=== PATIENT | male | born 1965 | race Caucasian/White ===

== ENCOUNTER 2017-05-27 14:18 | Emergency (ER) | payer OTHER, MEDICARE ==
[~2017-05-27] VITALS: Ht 180.3 cm; Wt 81.6 kg
[~2017-05-27 14:18] MED LIST: ASPIRIN81 M4 PO; ATIVAN1 M1 PO; AZITHROMYCIN250 M1 PO; DIVALPROEX SOD250 M3 PO; ESCITALOPRAM OX10 MG PO; FLEXERIL10 MG PO; GUAIFEN-CODEIN118 M1 PO; INCRUSE ELLI62.5 MCG PO; INDERAL LA60 M1 PO; MEDROL4 M2 PO; MOTRIN 600 MG600 MG PO; OLANZAPINE10 M1 PO; OMEPRAZOLE20 M2 PO; TRAZODONE HCL100 M1 PO; VENTOLIN HFA18 GM INH; VICODIN 300 MG-1 TAB PO
[2017-05-27 14:51] LABS: ABSOLUTE BASOPHIL COUNT 0.1 /CUMM (0.0-0.2); ABSOLUTE EOSINOPHIL COUNT 0.2 /CUMM (0.0-0.7); ABSOLUTE GRANULOCYTE CT 7.1 /CUMM (1.4-6.5); ABSOLUTE LYMPH COUNT 2.8 /CUMM (1.2-3.4); ABSOLUTE MONOCYTE COUNT 1.3 /CUMM (0.10-0.60); BASOPHIL % 0.9 % (0.0-2.0); EOSINOPHIL % 1.8 % (0-5); HEMATOCRIT 41.7 % (42-52); MEAN CORPUSCULAR HGB 29.9 PG (27.0-31.0); MEAN CORPUSCULAR HGB CONC 33.1 G/DL (33.0-37.0); MEAN CORPUSCULAR VOLUME 90.5 FL (80.0-94.0); PLATELET COUNT 451 /CUMM (130-400); RBC DISTRIBUTION WIDTH 13.8 % (11.5-14.5); RED BLOOD CELL CT 4.61 /CUMM (4.70-6.10); WHITE BLOOD CELL COUNT 11.4 /CUMM (4.8-10.8)
--- NOTE | 2017-05-27 16:29 | ED CARDIAC/CP/PALPITATIONS ---
History of Present Illness General Chief Complaint: Chest Pain Stated Complaint: LEFT SIDED CHEST/NECK PAIN Source: patient Exam Limitations: no limitations Vital Signs & Intake/Output Vital Signs & Intake/Output Vital Signs Date Time Temp Pulse Resp B/P B/P Pulse O2 O2 Flow FiO2 Mean Ox Delivery Rate 05/27 2026 98.0 70 20 146/82 98 Room Air 05/27 1912 97.6 72 20 151/78 98 Room Air 05/27 1838 98.2 69 14 141/73 97 Room Air 05/27 1625 99 05/27 1427 97.6 86 20 134/77 96 Room Air Allergies Coded Allergies: Penicillins (UNKNOWN 10/09/16) celery (UNKNOWN 10/09/16) morphine (VOMITING 10/09/16) Reconcile Medications Albuterol Sulfate (Ventolin Hfa) 90 MCG HFA.AER.AD 2 PUF INH Q4-6 PRN PRN SHORTNESS OF BREATH (Reported) Aspirin (Aspirin*) 81 MG TAB.CHEW 1 TAB PO DAILY HEART HEALTH (Reported) Azithromycin 250 MG TABLET 1 DP PO AD BRONCHITIS 2 the first day followed by 1 for days 2-5 Codeine Phosphate/Guaifenesi (Guaifen-Codeine 100-10 MG/5 Ml) 10 MG-100 MG/5 ML LIQUID 10 ML PO Q6HR PRN COUGH Divalproex Sodium (Divalproex Sodium ER) 250 MG TAB.ER.24H 1 TAB PO BID UNKNOWN (Reported) Escitalopram Oxalate 10 MG TABLET 0.5 TAB PO DAILY MENTAL HEALTH (Reported) LORazepam (Ativan) 1 MG TABLET 1 TAB PO DAILY ANXIETY (Reported) Methylprednisolone. (Medrol) 4 MG TAB.DS.PK 1 DP PO AD COUGH 6 on day 1 then reduce by one tablet daily until gone Olanzapine 10 MG TABLET 2 TAB PO QPM MENTAL HEALTH (Reported) Omeprazole 20 MG CAPSULE.DR 1 CAP PO DAILY GI (Reported) Oxycodone HCl/Acetaminophen (Percocet 5-325 MG Tablet) 5 MG-325 MG TABLET 1-2 TAB PO BID PAIN Propranolol LA (Inderal LA) 60 MG CAP.SA.24H 1 CAP PO DAILY UNKNOWN (Reported ) Trazodone HCl 100 MG TABLET 1 TAB PO QPM SLEEP (Reported) Umeclidinium [place] (Incruse Ellipta) 62.5 MCG/ACTUATION BLST.W.DEV 1 PUFF PO DAILY COPD (Reported) Triage Note: PT TO ED C/O MID STERNAL CHEST PAIN, LEFT SIDED NECK PAIN SINCE 1800 ON FRIDAY. H/O MT X 2 IN 2011. PAIN IS WORSE WITH INHALATION. DENIES N/V/D. TO EKG [facility]. Triage Nurses Notes Reviewed? yes Onset: Abrupt Duration: day(s): (3), constant Timing: recent history Quality/Severity: sharp Modifying Factors: Worsens With: breathing. HPI: 51-year-old male comes into emergency room with complaints of left-sided chest pain this been going on for the past 3 days continuous. Worse with deep breath. Radiates down his left arm and into his left neck. He denies any fever chills cough. Denies any shortness of breath. Denies any vomiting. Patient reports he had an MT back in 2011. He comes in for further evaluation. Past History Travel History Traveled to [place] past 21 day No Medical History Any Pertinent Medical History? see below for history Neurological: NONE EENT: NONE Cardiovascular: myocardial infarction, X 2 Respiratory: COPD, lung cancer Gastrointestinal: NONE Hepatic: NONE Renal: NONE Musculoskeletal: NONE Psychiatric: NONE Endocrine: diabetes Cancer(s): lung cancer Surgical History Surgical History: RIGHT LUNG TUMOR REMOVED Psychosocial History Who do you live with Family What is your primary language Syriac Tobacco Use: Quit >30 days ago ETOH Use: denies use Illicit Drug Use: denies illicit drug use Family History Hx Contributory? No Review of Systems Review of Systems Constitutional: Reports: no symptoms. EENTM: Reports: no symptoms. Respiratory: Reports: see HPI. Cardiovascular: Reports: see HPI. GI: Reports: no symptoms. Genitourinary: Reports: no symptoms. Musculoskeletal: Reports: see HPI. Skin: Reports: no symptoms. Neurological/Psychological: Reports: no symptoms. Hematologic/Endocrine: Reports: no symptoms. Immunologic/Allergic: Reports: no symptoms. All Other Systems: Reviewed and Negative Physical Exam Physical Exam General Appearance: well developed/nourished, alert, awake Head: atraumatic Eyes: Bilateral: normal appearance. Ears, Nose, Throat: normal ENT inspection, hearing grossly normal Neck: normal inspection Respiratory: no respiratory distress, chest wall tenderness left side of chest Cardiovascular: regular rate/rhythm Gastrointestinal: soft Back: normal inspection Extremities: normal inspection, normal range of motion, no edema Neurologic/Psych: awake, alert, oriented x 3, normal gait Skin: intact, normal color Core Measures ACS in differential dx? No CVA/TIA Diagnosis No Sepsis Present: No Sepsis Focused Exam Completed? No Progress Differential Diagnosis: AMI, aortic dissection, atrial fibrillation, cholecystitis, costochondritis, hyperkalemia, musculoskeletal pain, myocarditis, pericarditis, pneumonia, pneumothorax, pulmonary embolism, PUD/GERD, respiratory failure, unstable angina Plan of Care: Orders Procedure Date/time Status TROPONIN LEVEL 05/27 1740 Complete EKG 05/27 1740 Active Add-on Test (ER Only) 05/27 1628 Active Telemetry/Packing House Laborer 05/27 1628 Active D-DIMER 05/27 1440 Complete TROPONIN LEVEL 05/27 1432 Complete MAGNESIUM 05/27 1432 Complete COMPREHENSIVE METABOLIC PANEL 05/27 1432 Complete CHOLESTEROL 05/27 1432 Complete CBC WITHOUT DIFFERENTIAL 05/27 1432 Complete EKG 05/27 1420 Active Laboratory Tests 05/27/17 1737: Troponin I < 0.01 05/27/17 1440: Anion Gap 12, Estimated GFR > 60, BUN/Creatinine Ratio 8.6, Glucose 147 H, Calcium 9.9, Magnesium 1.6, Total Bilirubin 0.2, AST 16 L, ALT 18 L, Alkaline Phosphatase 74, Troponin I < 0.01, Total Protein 6.9, Albumin 3.9, Globulin 3.0, Albumin/Globulin Ratio 1.3, Cholesterol 107, D-Dimer High Sensitivty 288 H, CBC w Diff NO MAN DIFF REQ, RBC 4.61 L, MCV 90.5, MCH 29.9, MCHC 33.1, RDW 13.8, MPV 8.0, Gran % 62.0, Lymphocytes % 24.1, Monocytes % 11.2 H, Eosinophils % 1.8 , Basophils % 0.9, Absolute Granulocytes 7.1 H, Absolute Lymphocytes 2.8, Absolute Monocytes 1.3 H, Absolute Eosinophils 0.2, Absolute Basophils 0.1 Diagnostic Imaging: Viewed by Me: Radiology Read, CT Scan. Discussed w/RAD: Radiology Read, CT Scan. Radiology Impression: PATIENT: SANTOS DONAHUE PRESENT AGE: 51 PATIENT ACCOUNT NO: [id number] : 67 LOCATION: [facility] ORDERING PHYSICIAN: Kolton PRASAD SERVICE DATE: 05/27/17 EXAM TYPE : CAT - CTA CHEST-PULMONARY EMBOLISM EXAMINATION: CT ANGIOGRAM OF THE CHEST WITH AND WITHOUT CONTRAST (CT PULMONARY ANGIOGRAM FOR PE) CLINICAL INFORMATION: ELEAVTED D DIMER, CHEST PAIN COMPARISON: Chest radiograph 05/27/2017. TECHNIQUE: Prior to contrast administration, noncontrast localization images were obtained. Subsequently, multidetector volumetric imaging was performed from the thoracic inlet to below the diaphragms following the administration of 95 mL Optiray 320 intravenous contrast. No contrast reaction reported. Sagittal, coronal, and MIP oblique sagittal reformatted images were obtained on the CT workstation, uploaded to PACS, and reviewed. Total exam dose-length product 281.9 mGy-cm. FINDINGS: The timing of the contrast injection provides adequate opacification of the pulmonary arterial vasculature. There is no central luminal filling defect to suggest the presence of an acute pulmonary embolism. There are chronic postsurgical changes of a right upper and middle lobectomy. Pleural parenchymal scarring is visualized within the right hemithorax at the site of the thoracotomy. The left lung is clear. There is mild peribronchial thickening primarily within the right hemithorax. The trachea is otherwise patent. Chronic changes of a healed tracheostomy are noted. There are no pathologically enlarged mediastinal or axillary lymph nodes within the [id number] of this examination. The thyroid gland is normal and the remainder of the visualized visceral soft tissues are normal. Of note there are chronic changes of a laminectomy that extends from T2 to T4. 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 There is at least moderate canal stenosis at T10-T11 and T11-T12. IMPRESSION: There is no evidence of an acute pulmonary embolism. Chronic changes of a right upper and middle lobectomy are noted. Exuberant ossification is visualized at multiple consecutive levels within the thoracic spine causing dorsal indentation of the thecal sac and at least moderate canal stenosis at multiple levels. VTE: Negative. DICTATED BY: Jovany Villegas MD DATE/TIME DICTATED:05/27/171949 TECHNICAL DELIVERY MANAGER:MISSY DATE/TIME TRANSCRIBED:05/27/171949 CONFIDENTIAL, DO NOT COPY WITHOUT APPROPRIATE AUTHORIZATION. <Electronically signed in Other Vendor System> SIGNED BY: Jovany Villegas MD 05/27/172006, PATIENT: SANTOS DONAHUE PRESENT AGE: 51 PATIENT ACCOUNT NO: [id number] : 67 LOCATION: [facility] ORDERING PHYSICIAN: Kolton PRASAD SERVICE DATE: 05/27/17 EXAM TYPE: RAD - XRY-CHEST XRAY, TWO VIEWS EXAMINATION: XR CHEST CLINICAL INFORMATION: Chest pain. COMPARISON: Chest x-ray 10/09/2016. TECHNIQUE: Frontal and lateral views of the chest were obtained. FINDINGS: The study redemonstrates the postoperative changes in the right lateral chest wall with irregular ribs. There is right-sided apical pleural thickening and pleural thickening at the right base. There is elevation of the right hemidiaphragm and there is volume loss. These findings appear stable compared to the prior study. The left lung is well-expanded. No focal consolidation is seen. The cardiac silhouette is normal. The central pulmonary vasculature is normal. The hilar regions are unremarkable. There are multiple surgical clips in the upper abdomen. IMPRESSION: 1. There are no acute cardiac pulmonary findings. 2. The study redemonstrates the postoperative changes in the right lateral chest. DICTATED BY: Kendrick Cristina MD DATE/TIME DICTATED:05/27/171714 TECHNICAL DELIVERY MANAGER:MISSY DATE/TIME TRANSCRIBED:05/27/171714 CONFIDENTIAL, DO NOT COPY WITHOUT APPROPRIATE AUTHORIZATION. <Electronically signed in Other Vendor System> SIGNED BY: Kendrick Cristina MD 05/27/17 1722 Initial ED EKG: normal sinus rhythm, rate (78), nonspecific ST T wave chg Repeat EKG: unchanged Departure Departure Disposition: HOME OR SELF CARE Condition: Stable Clinical Impression Primary Impression: Chest wall pain Referrals: Harvinder ROTHMANMarisol (PCP/Family) Additional Instructions: Take Percocet for pain. Follow-up with primary care doctor. Follow-up with your head piece assembler. Return if any other concerns worsening symptoms. Please go over all results of today's visit with your primary care doctor. Contact your primary care doctor to let them know you were here in the emergency room. There may be nonspecific findings which may not be related to your visit today here in the emergency room but may require further evaluation and chronic monitoring by your primary care doctor. If you had a laceration today the chance of foreign body always remains. You should follow-up with your primary care doctor for recheck in 3-5 days for a wound check. If you had an x-ray done there is a chance that a fracture could have been missed on initial read and you should follow-up with your primary care doctor for repeat x-rays if symptoms persist. If your blood pressure was elevated here in the emergency room please have rechecked by leidy primary care doctor within the next 48. If you were prescribed a narcotic here in the emergency room or any type of controlled substances you're not allowed to drive while taking this medication or operate any type of heavy machinery. Narcotics can make you feel lightheaded dizziness nausea and can cause constipation. You may need to warehouse order picker a stool softener. Thank you for choosing [facility] emergency room. Please return to the emergency room immediately if you have any other concerns worsening of symptoms. Departure Forms: Customer Survey General Discharge Information Prescriptions: Current Visit Scripts Oxycodone HCl/Acetaminophen (Percocet 5-325 MG Tablet) 1-2 TAB PO BID #10 TAB Comments 05/27/2017 9:35:29 PM Chest pain is reproducible. Pain is worse with range of motion. 2 normal troponins. 2 unchanged EKGs. No evidence of pulmonary embolism. Patient will follow-up with his head piece assembler. Return if any other concerns. Pain went from an 11/27/2000 after the Percocet. As stated before the pain was reproducible on exam and worse with certain movements making it more consistent with musculoskeletal pain. Critical Care Note Critical Care Note Critical Care Time: non-applicable
--- NOTE | 2017-05-27 17:22 | RADIOLOGY REPORT ---
EXAMINATION: XR CHEST CLINICAL INFORMATION: Chest pain. COMPARISON: Chest x-ray 10/09/2016. TECHNIQUE: Frontal and lateral views of the chest were obtained. FINDINGS: The study redemonstrates the postoperative changes in the right lateral chest wall with irregular ribs. There is right-sided apical pleural thickening and pleural thickening at the right base. There is elevation of the right hemidiaphragm and there is volume loss. These findings appear stable compared to the prior study. The left lung is well-expanded. No focal consolidation is seen. The cardiac silhouette is normal. The central pulmonary vasculature is normal. The hilar regions are unremarkable. There are multiple surgical clips in the upper abdomen. IMPRESSION: 1. There are no acute cardiac pulmonary findings. 2. The study redemonstrates the postoperative changes in the right lateral chest.
--- NOTE | 2017-05-27 20:07 | CT SCAN REPORT ---
EXAMINATION: CT ANGIOGRAM OF THE CHEST WITH AND WITHOUT CONTRAST (CT PULMONARY ANGIOGRAM FOR PE) CLINICAL INFORMATION: ELEAVTED D DIMER, CHEST PAIN COMPARISON: Chest radiograph 05/27/2017. TECHNIQUE: Prior to contrast administration, noncontrast localization images were obtained. Subsequently, multidetector volumetric imaging was performed from the thoracic inlet to below the diaphragms following the administration of 95 mL Optiray 320 intravenous contrast. No contrast reaction reported. Sagittal, coronal, and MIP oblique sagittal reformatted images were obtained on the CT workstation, uploaded to PACS, and reviewed. Total exam dose-length product 281.9 mGy-cm. FINDINGS: The timing of the contrast injection provides adequate opacification of the pulmonary arterial vasculature. There is no central luminal filling defect to suggest the presence of an acute pulmonary embolism. There are chronic postsurgical changes of a right upper and middle lobectomy. Pleural parenchymal scarring is visualized within the right hemithorax at the site of the thoracotomy. The left lung is clear. There is mild peribronchial thickening primarily within the right hemithorax. The trachea is otherwise patent. Chronic changes of a healed tracheostomy are noted. There are no pathologically enlarged mediastinal or axillary lymph nodes within the [id number] of this examination. The thyroid gland is normal and the remainder of the visualized visceral soft tissues are normal. Of note there are chronic changes of a laminectomy that extends from T2 to T4. 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 There is at least moderate canal stenosis at T10-T11 and T11-T12. IMPRESSION: There is no evidence of an acute pulmonary embolism. Chronic changes of a right upper and middle lobectomy are noted. Exuberant ossification is visualized at multiple consecutive levels within the thoracic spine causing dorsal indentation of the thecal sac and at least moderate canal stenosis at multiple levels. VTE: Negative.
[2017-05-27] MEDS ORDERED: PERCOCET 5-3251 EACH PO (20:25)
[2017-05-27 20:27] VITALS: BP 146/82
== END 2017-05-27 20:40 ==
LOC: ERH 14:18
PROVIDERS: Emergency Medicine
DX: R07.89 Other chest pain (principal)
CPT/HCPCS: 71046; 93005; 93010

== ENCOUNTER 2017-09-26 13:43 | Inpatient (IN) | payer OTHER, MEDICARE ==
[~2017-09-26] VITALS: Ht 180.3 cm; Wt 68.1 kg
[~2017-09-26 13:43] MED LIST changes: +PERCOCET 5-3251 EACH PO
--- NOTE | 2017-09-26 15:37 | RADIOLOGY REPORT ---
EXAMINATION: XR CHEST CLINICAL INFORMATION: SOB and chest pain. COMPARISON: Chest 05/27/2017. TECHNIQUE: 2 views of the chest were obtained. FINDINGS: There are postoperative changes in the right lateral chest wall with some of the ribs partially resected. There is loss of right lung volume likely from partial lobectomy. There is linear density right upper lobe likely scarring with apical pleural thickening. The left lung remains expanded and clear. Heart size and pulmonary vascularity is normal. No gross bony abnormality seen. IMPRESSION: Postoperative changes right lateral chest wall with a loss of right lung volume and likely linear atelectasis/scarring right upper lung. The left lung is expanded and clear. No major change from 05/27/2017 chest x-ray.
[2017-09-26 15:46] LABS: ABSOLUTE BASOPHIL COUNT 0 /CUMM (0.0-0.2); ABSOLUTE EOSINOPHIL COUNT 0.3 /CUMM (0.0-0.7); ABSOLUTE GRANULOCYTE CT 9.2 /CUMM (1.4-6.5); ABSOLUTE LYMPH COUNT 3.3 /CUMM (1.2-3.4); ABSOLUTE MONOCYTE COUNT 2.2 /CUMM (0.10-0.60); BASOPHIL % 0.3 % (0.0-2.0); EOSINOPHIL % 1.7 % (0-5); GRANULOCYTE % 61.5 % (42.2-75.2); MEAN CORPUSCULAR HGB 30.3 PG (27.0-31.0); MEAN CORPUSCULAR VOLUME 89.3 FL (80.0-94.0); MEAN PLATELET VOLUME 7.4 FL (7.4-10.4); PLATELET COUNT 577 /CUMM (130-400); RBC DISTRIBUTION WIDTH 13.8 % (11.5-14.5); RED BLOOD CELL CT 4.48 /CUMM (4.70-6.10); WHITE BLOOD CELL COUNT 14.9 /CUMM (4.8-10.8)
--- NOTE | 2017-09-26 20:44 | ED DYSPNEA/ASTHMA COMPLAINT ---
History of Present Illness General Chief Complaint: General Adult Stated Complaint: COUGH,NASAL CONGESTION,BACK PAIN Source: patient, family Exam Limitations: no limitations Vital Signs & Intake/Output Vital Signs & Intake/Output Vital Signs Date Time Temp Pulse Resp B/P B/P Pulse O2 O2 Flow FiO2 Mean Ox Delivery Rate 09/27 0128 Room Air 09/27 0127 97.8 80 18 162/90 94 Room Air 09/27 0031 97.7 79 16 155/78 97 Room Air 09/26 2326 95 09/26 2219 72 16 133/69 96 Room Air 09/26 2218 Room Air 09/26 1858 97.7 68 18 170/69 97 Room Air 09/26 1436 97.1 80 18 125/92 97 Room Air ED Intake and Output 09/27 0000 09/26 1200 Intake Total 0 Output Total Balance 0 Intake, Oral 0 Patient 170 lb Weight Allergies Coded Allergies: Penicillins (UNKNOWN 10/09/16) celery (UNKNOWN 10/09/16) morphine (VOMITING 10/09/16) Reconcile Medications Albuterol Sulfate (Ventolin Hfa) 90 MCG HFA.AER.AD 2 PUF INH Q4-6 PRN PRN SHORTNESS OF BREATH (Reported) Aspirin (Aspirin*) 81 MG TAB.CHEW 1 TAB PO DAILY HEART HEALTH (Reported) Azithromycin 250 MG TABLET 1 DP PO AD BRONCHITIS 2 the first day followed by 1 for days 2-5 Codeine Phosphate/Guaifenesi (Guaifen-Codeine 100-10 MG/5 Ml) 10 MG-100 MG/5 ML LIQUID 10 ML PO Q6HR PRN COUGH Divalproex Sodium (Divalproex Sodium ER) 250 MG TAB.ER.24H 1 TAB PO BID UNKNOWN (Reported) Escitalopram Oxalate 10 MG TABLET 0.5 TAB PO DAILY MENTAL HEALTH (Reported) LORazepam (Ativan) 1 MG TABLET 1 TAB PO DAILY ANXIETY (Reported) Methylprednisolone. (Medrol) 4 MG TAB.DS.PK 1 DP PO AD COUGH 6 on day 1 then reduce by one tablet daily until gone Olanzapine 10 MG TABLET 2 TAB PO QPM MENTAL HEALTH (Reported) Omeprazole 20 MG CAPSULE.DR 1 CAP PO DAILY GI (Reported) Oxycodone HCl/Acetaminophen (Percocet 5-325 MG Tablet) 5 MG-325 MG TABLET 1-2 TAB PO BID PAIN Propranolol LA (Inderal LA) 60 MG CAP.SA.24H 1 CAP PO DAILY UNKNOWN (Reported ) Trazodone HCl 100 MG TABLET 1 TAB PO QPM SLEEP (Reported) Umeclidinium [place] (Incruse Ellipta) 62.5 MCG/ACTUATION BLST.W.DEV 1 PUFF PO DAILY COPD (Reported) Triage Note: 51 YEAR OLD MALE STATES THAT HE HAS HAD A NON PRODUCTIVE COUGH FOR 15 DAYS, WAS SEEN AT URGENT CARE AND STARTED ON ABT , STATES THAT HE IS NOT FEELING BETTER , COUGH CONTINUES, PAIN IN BACK AND CHEST WHEN HE COUGHS Triage Nurses Notes Reviewed? yes HPI: 51 yo M presenting with URI Sx, chest pain, SOB. URI Sx for the last 2-3 weeks with cough, congestion, rhinorrhea. Associated chest pain, right anterior chest, radiating to the back, inermittent, pleuritic, worse with coughing. Progressive shortness of breath and wheezing, partially releived by albuterol MDI, worse this afternoon prompting presentation to the ED. Tactile fevers and chills. Denies palpitations, LE swelling or pain, abdominal Sx, urinary Sx, headache, neck pain or focal neurologic Sx. Patient has been evaluated by 2 walk-in clinics, given azithromycin x 5 days, prednisone x 5 days, and Moxifloxacin x 7 days without improvement. (Garrett ROTHMAN,Donta) Past History Travel History Traveled to [place] past 21 day No Medical History Any Pertinent Medical History? see below for history Neurological: NONE EENT: NONE Cardiovascular: myocardial infarction, X 2 Respiratory: COPD, lung cancer Gastrointestinal: NONE Hepatic: NONE Renal: NONE Musculoskeletal: NONE Psychiatric: NONE Endocrine: diabetes Cancer(s): lung cancer Surgical History Surgical History: RIGHT LUNG TUMOR REMOVED Psychosocial History Who do you live with Family What is your primary language Beninese Tobacco Use: Quit >30 days ago ETOH Use: denies use Illicit Drug Use: denies illicit drug use Family History Hx Contributory? Yes (Garrett ROTHMAN,Donta) Review of Systems Review of Systems Constitutional: Reports: see HPI. EENTM: Reports: see HPI. Respiratory: Reports: see HPI. Cardiovascular: Reports: see HPI. GI: Reports: no symptoms. Genitourinary: Reports: no symptoms. Musculoskeletal: Reports: no symptoms. Skin: Reports: no symptoms. Neurological/Psychological: Reports: no symptoms. Hematologic/Endocrine: Reports: no symptoms. Immunologic/Allergic: Reports: no symptoms. All Other Systems: Reviewed and Negative (Garrett ROTHMAN,Donta) Physical Exam Physical Exam General Appearance: alert, awake Head: atraumatic Neck: normal inspection, full range of motion Respiratory: wheezing Cardiovascular: regular rate/rhythm, normal peripheral pulses Gastrointestinal: soft, non-tender Comments: Pulmonary: Normal WOB without tachypnea or retractions, diffuse epxiratory wheezes without focal rhonchi Extremities: Non-edematous, non-TTP Core Measures ACS in differential dx? No CVA/TIA Diagnosis No Sepsis Present: No Sepsis Focused Exam Completed? No (Garrett ROTHMAN,Donta) Progress Differential Diagnosis: asthma, AMI, altitude sickness, bronchitis, costochondritis, CHF, COPD, musculoskeletal pain, pericarditis, pulmonary embolism, pneumonia, pneumothorax, rib fracture, unstable angina Plan of Care: Orders Procedure Date/time Status CBC WITHOUT DIFFERENTIAL 09/27 06 Active BASIC ELECTROLYTES PLUS BUN&CR 09/27 06 Active Weight 09/27 0059 Active Vital Signs 09/27 005 Active Teach/Educate 09/27 58 Active Pain Treatment and Response 09/27 005 Active Nutritional Intake, Monitor 09/27 58 Active Isolation 09/27 005 Active Intake & Output 09/27 005 Active Patient Care Conference 09/27 0059 Active Activity/Ambulation 09/27 0059 Active FingerStick- Glucose 09/27 UNK Active Regular Diet 09/26 D Active Add-on Test (ER Only) 09/26 2339 Active Pathway - chart 09/26 2318 Active Code Status 09/26 2318 Active Patient Data 09/26 2311 Active BLOOD CULTURE 09/26 2131 Active Admit to inpatient 09/26 2128 Active LACTIC ACID 09/26 2047 Complete URINE LYTES, SPOT 09/26 1945 Complete LEGIONELLA URINARY ANTIGEN 09/26 1931 Complete URINALYSIS 09/26 1931 Complete Intake & Output 09/26 1858 Active TROPONIN LEVEL 09/26 1436 Complete D-DIMER 09/26 1436 Complete COMPREHENSIVE METABOLIC PANEL 09/26 1436 Complete CBC WITHOUT DIFFERENTIAL 09/26 1436 Complete EKG 09/26 1436 Active TRC EVALUATION (GEN) 09/26 UNK Active House Staff 09/26 UNK Active VTE Mechanical Prophylaxis 09/26 UNK Active Vital Signs 09/26 UNK Active Current Medications Sig/Qing Start time Last Medication Dose Stop Time Status Admin Olanzapine 20 MG QPM 09/27 2099 AC (Zyprexa) Trazodone HCl 100 MG QPM 09/27 2099 AC (Desyrel) Aspirin 81 MG DAILY 09/27 899 AC (Aspirin) Enoxaparin Sodium 40 MG DAILY 09/27 899 AC (Lovenox) Escitalopram Oxalate 5 MG DAILY 09/27 899 AC (Lexapro) Lorazepam 1 MG DAILY 09/27 899 AC (Ativan) Omeprazole 40 MG DAILY 09/27 899 AC (Prilosec) Tiotropium [place] 1 PUF DAILY 09/27 899 AC (Spiriva) Acetaminophen 650 MG Q6 PRN 09/27 0245 AC 09/27 (Tylenol) 024 Albuterol Sulfate 2 PUF Q4-6 PRN PRN 09/26 2330 AC (Ventolin) Guaifenesin/Codeine 10 ML Q6P PRN 09/26 2330 AC Phosphate (Robitussin AC) Divalproex Sodium 250 MG BID 09/26 2320 AC (Depakote ER) Laboratory Tests 09/26/17 2347: Lactic Acid Cancelled 09/26/17 2325: Ur Random Creatinine Cancelled, Ur Random Sodium Cancelled, Ur Random Potassium Cancelled, Fraction Sodium Excret Cancelled 09/26/17 2210: Lactic Acid 0.6 L 09/26/171944: Urine Color STRAW, Urine Clarity CLEAR, Urine pH 7.0, Ur Specific [place] <= 1.005, Urine Protein NEG, Urine Ketones NEG, Urine Nitrite NEG, Urine Bilirubin NEG, Urine Urobilinogen 0.2, Ur Leukocyte Esterase NEG, Ur Microscopic EXAM NOT REQUIRED, Urine Hemoglobin NEG, Urine Glucose NEG 09/26/17 194: Ur Random Creatinine 18.2, Ur Random Sodium 15 L, Ur Random Potassium 13.3, Fraction Sodium Excret 0.4 09/26/17 1527: Anion Gap 10, Estimated GFR > 60, BUN/Creatinine Ratio 5.7 L, Glucose 117 H, Calcium 9.7, Total Bilirubin 0.5, AST 18, ALT 17 L, Alkaline Phosphatase 73, Troponin I < 0.01, Total Protein 6.9, Albumin 3.5, Globulin 3.4, Albumin/ Globulin Ratio 1.0 L, D-Dimer High Sensitivty 236, CBC w Diff NO MAN DIFF REQ, RBC 4.48 L, MCV 89.3, MCH 30.3, MCHC 34.0, RDW 13.8, MPV 7.4, Gran % 61.5, Lymphocytes % 21.9, Monocytes % 14.6 H, Eosinophils % 1.7, Basophils % 0.3, Absolute Granulocytes 9.2 H, Absolute Lymphocytes 3.3, Absolute Monocytes 2.2 H, Absolute Eosinophils 0.3, Absolute Basophils 0 Microbiology 09/26 2145 BLOOD: Blood Culture - RECD 09/26 2130 BLOOD: Blood Culture - RECD 09/26 2046 BLOOD: Blood Culture - CAN Cancelled: ERROR ORDER 09/26 194 URINE ROUT: Legionella Antigen - COMP 09/26 UNK BLOOD: Blood Culture - CAN Cancelled: ERROR ORDER Physician MDM: 51 yo M presenting with URI Sx, chest pain, SOB. VSS, exam as above. DDx: COPD exacerbation, PNA, PTX, Bronchitis, less likely ACS or PE, low concern for impending cardiovascular collapse 2/2 sepsis or aortic pathology. ECG sinus rhythm, non-ischemic. Troponin negative. Duonebs and solumedrol for COPD exacerbation. Labs remarkable for leukocytosis and signs of dehydration with hyponatremia and mild hyperkalemia at 5.2 (no ECG changes, treated with IVF ), CXR with post-surgical changes, ? PNA, ceftriaxone and doxycycline ordered. Given multiple attempts at outpatient Sx with ongoing respiratory Sx, leukocytosis, hyponatremia, hyperkalemia, will admit for IV abx and rehydration. Initial ED EKG: NSR (Garrett ROTHMAN,Donta) Departure Departure Disposition: STILL A PATIENT Condition: Stable Referrals: Harvinder ROTHMAN,Marisol (PCP/Family) Departure Forms: Customer Survey General Discharge Information Admission Note Spoke With: Abram Sidhu MD Documentation of Exam: Documentation of any treatments & extenuating circumstances including Concerns Regarding Discharge (functional status, medication knowledge or non-compliance, living conditions, etc.) that warrant an admission rather than observation: [ Patient presents with ongoing fever and respiratory symptoms following multiple outpatient treatments for COPD exacerbation, in ED the patient was found to have wheezing in his bilateral lungs as well as a leukocytosis, hyponatremia, and hyperkalemia, the patient requires admission to the hospital for IV antibiotics, IV fluids, possible old pulmonology consult, monitoring, if discharged patient is a high likelihood of progressive pneumonia with hypoxia, respiratory collapse , progressive hyponatremia and hyperkalemia, leading to seizures and possibly 2/2 cardiac arrest] (Garrett ROTHMAN,Donta) Departure Clinical Impression Primary Impression: Pneumonia Secondary Impressions: COPD exacerbation, Hyponatremia Resident Co-Sign Statement Statement: ED Attending supervision documentation- [] I saw and evaluated the patient. I have also reviewed all the pertinent lab results and diagnostic results. I agree with the findings and the plan of care as documented in the Resident's documentation. [x] I have reviewed the ED Record and agree with the Resident's documentation. [] Additions or exceptions (if any) to the Resident's note and plan are summarized below: [] (Mary ROTHMAN,Mendez Reagan) Critical Care Note Critical Care Note Critical Care Time: non-applicable (Donta Tucker MD)
--- NOTE | 2017-09-26 21:52 | History & Physical ---
Jos ROTHMAN,[facility] 09/26/17 2152: General Information and HPI MD Statement: I have seen and personally examined SANTOS IVGIL and documented this H&P. The patient is a 51 year old M who presented with a patient stated chief complaint of [cough with chest pain]. Source of Information: patient History of Present Illness: 46-year-old male with past medical history of hypertension, COPD, dyslipidemia, splenectomy and depression, LUNG CANCER STATUS post lobectomy came to [facility] with complaints of cough associated with chest pain for past 2 weeks. Patient went to urgent care clinic with similar symptoms 2 weeks ago and was given azithromycin/levofloxacin on 2 occasions. Despite on 2 antibiotics patient symptoms didn't improve and hence he brought himself to [facility]. He c/o chest pain while coughing. Denies fever, chills, shortness of breath, nausea, vomiting, abdominal pain, sick contacts, recent travel. Most of his care is that [facility]. Allergies/Medications Allergies: Coded Allergies: Penicillins (UNKNOWN 10/09/16) celery (UNKNOWN 10/09/16) morphine (VOMITING 10/09/16) Home Med list Albuterol Sulfate (Ventolin Hfa) 90 MCG HFA.AER.AD 2 PUF INH Q4-6 PRN PRN SHORTNESS OF BREATH (Reported) Aspirin (Aspirin*) 81 MG TAB.CHEW 1 TAB PO DAILY HEART HEALTH (Reported) Azithromycin 250 MG TABLET 1 DP PO AD BRONCHITIS 2 the first day followed by 1 for days 2-5 Codeine Phosphate/Guaifenesi (Guaifen-Codeine 100-10 MG/5 Ml) 10 MG-100 MG/5 ML LIQUID 10 ML PO Q6HR PRN COUGH Divalproex Sodium (Divalproex Sodium ER) 250 MG TAB.ER.24H 1 TAB PO BID UNKNOWN (Reported) Escitalopram Oxalate 10 MG TABLET 0.5 TAB PO DAILY MENTAL HEALTH (Reported) LORazepam (Ativan) 1 MG TABLET 1 TAB PO DAILY ANXIETY (Reported) Methylprednisolone. (Medrol) 4 MG TAB.DS.PK 1 DP PO AD COUGH 6 on day 1 then reduce by one tablet daily until gone Olanzapine 10 MG TABLET 2 TAB PO QPM MENTAL HEALTH (Reported) Omeprazole 20 MG CAPSULE.DR 1 CAP PO DAILY GI (Reported) Oxycodone HCl/Acetaminophen (Percocet 5-325 MG Tablet) 5 MG-325 MG TABLET 1-2 TAB PO BID PAIN Propranolol LA (Inderal LA) 60 MG CAP.SA.24H 1 CAP PO DAILY UNKNOWN (Reported ) Trazodone HCl 100 MG TABLET 1 TAB PO QPM SLEEP (Reported) Umeclidinium [place] (Incruse Ellipta) 62.5 MCG/ACTUATION BLST.W.DEV 1 PUFF PO DAILY COPD (Reported) Compliance With Home Meds: FAIR Past History Travel History Traveled to [place] past 21 day No Medical History Neurological: NONE EENT: NONE Cardiovascular: myocardial infarction, X 2 Respiratory: COPD, lung cancer Gastrointestinal: NONE Hepatic: NONE Renal: NONE Musculoskeletal: NONE Psychiatric: NONE Endocrine: diabetes Cancer(s): lung cancer Surgical History Surgical History: RIGHT LUNG TUMOR REMOVED Past Family/Social History Family History Relations & Conditions if any Relation not specified for: *No pertinent family history Psychosocial History Where do you live? Home Who Do You Live With? self Primary Language: Romanian Smoking Status: Former Smoker ETOH Use: denies use Illicit Drug Use: denies illicit drug use Functional Ability ADLs Independent: dressing, eating, toileting, bathing. Ambulation: cane IADLs Independent: shopping, housework, finances, food prep, telephone, transportation , medication admin. Review of Systems Review of Systems Constitutional: Reports: no symptoms, see HPI. Cardiovascular: Reports: no symptoms. Respiratory: Reports: cough. GI: Reports: no symptoms. Genitourinary: Reports: no symptoms. Musculoskeletal: Reports: no symptoms. Exam & Diagnostic Data Last 24 Hrs of Vital Signs/I&O Vital Signs Date Time Temp Pulse Resp B/P B/P Pulse O2 O2 Flow FiO2 Mean Ox Delivery Rate 09/26 2219 72 16 133/69 96 Room Air 09/26 2218 Room Air 09/26 1858 97.7 68 18 170/69 97 Room Air 09/26 1436 97.1 80 18 125/92 97 Room Air Intake & Output 09/26 1600 09/26 0800 09/26 0000 Intake Total Output Total Balance Patient 170 lb Weight Physical Exam General Appearance Alert, Oriented X3, Cooperative, No Acute Distress Cardiovascular Normal S1, Normal S2, No Murmurs Lungs Clear to Auscultation Abdomen Soft, No Tenderness, No Hepatospenomegaly Neurological Normal Tone, Sensation Intact Extremities No Edema Last 24 Hrs of Labs/Dharmesh: Laboratory Tests 09/26/17 2210: Lactic Acid 0.6 L 09/26/171944: Urine Color STRAW, Urine Clarity CLEAR, Urine pH 7.0, Ur Specific [place] <= 1.005, Urine Protein NEG, Urine Ketones NEG, Urine Nitrite NEG, Urine Bilirubin NEG, Urine Urobilinogen 0.2, Ur Leukocyte Esterase NEG, Ur Microscopic EXAM NOT REQUIRED, Urine Hemoglobin NEG, Urine Glucose NEG 09/26/17 1527: Anion Gap 10, Estimated GFR > 60, BUN/Creatinine Ratio 5.7 L, Glucose 117 H, Calcium 9.7, Total Bilirubin 0.5, AST 18, ALT 17 L, Alkaline Phosphatase 73, Troponin I < 0.01, Total Protein 6.9, Albumin 3.5, Globulin 3.4, Albumin/ Globulin Ratio 1.0 L, D-Dimer High Sensitivty 236, CBC w Diff NO MAN DIFF REQ, RBC 4.48 L, MCV 89.3, MCH 30.3, MCHC 34.0, RDW 13.8, MPV 7.4, Gran % 61.5, Lymphocytes % 21.9, Monocytes % 14.6 H, Eosinophils % 1.7, Basophils % 0.3, Absolute Granulocytes 9.2 H, Absolute Lymphocytes 3.3, Absolute Monocytes 2.2 H, Absolute Eosinophils 0.3, Absolute Basophils 0 Microbiology 09/26 2145 BLOOD: Blood Culture - RECD 09/26 2130 BLOOD: Blood Culture - RECD 09/26 2046 BLOOD: Blood Culture - CAN Cancelled: ERROR ORDER 09/26 1944 URINE ROUT: Legionella Antigen - COMP 09/26 UNK BLOOD: Blood Culture - CAN Cancelled: ERROR ORDER Assessment/Plan Assessment: 46-year-old male with past medical history of hypertension, COPD, dyslipidemia, splenectomy and depression, LUNG CANCER STATUS post lobectomy came to [facility] with complaints of cough associated with chest pain for past 2 weeks. Admission vitals Temperature 97.7, pulse rate 79, respiratory rate 16, blood pressure 155/78, 97 at room air. Admission labs WBC 14.9, hemoglobin 13.6, platelet count 577, sodium 129, potassium 5.2, d- dimer-236. Chest x-ray Postoperative changes right lateral chest wall with a loss of right lung volume and likely linear atelectasis/scarring right upper lung. The left lung is expanded and clear. - Assessment and plan Chronic bronchitis Hyponatremia Bipolar disease -Chronic cough associated with chest pain-possible bronchitis less likely pneumonia. Of note patient has COPD. We will continuel Spirva and Ventolin. We will follow him off antibiotics. -Chronic hyponatremia-we will send urine osmolality, fena, urine sodium, potassium and creatinine. -Continue rest of his home medication. Core Measures/Misc (01/12) Acute Coronary Syndrome ACS Diagnosis: No Congestive Heart Failure Congestive Heart Failure Diagnosis No Cerebrovascular Accident CVA/TIA Diagnosis: No VTE (View Protocol) VTE Risk Factors Age>40 No Mechanical VTE Prophylaxis d/t Other No VTE Pharm Prophylaxis d/t Other Sepsis (View protocol) Sepsis Present: No If YES complete Sepsis Event Note If YES complete Sepsis Event Note Nahum ROTHMAN,[facility] 09/27/17 0258: Assessment/Plan As Ranked By This Provider Problem List: 1. Chronic cough 2. Bronchitis 3. Back pain Core Measures/Misc (01/12) Sepsis (View protocol) If YES complete Sepsis Event Note If YES complete Sepsis Event Note Attending MD Review Statement Attending Statement Attending MD Statement: examined this patient, discuss w/resident/PA/BARLEY STEEPER, agreed w/resident/PA/BARLEY STEEPER, discussed with nursing Attending Assessment/Plan: Mr. Vigil is a 51-year-old male with history of hypertension COPD dyslipidemia depression, lung cancer status post lobectomy, remote PR, presents with complaints of cough ring on for the past 2 weeks. Patient recently completed antibiotics prescribed at urgent care clinic including azithromycin and moxifloxacin. However his symptoms are not completely better. On examination blood pressure 133/69, heart rate of 72, respiratory rate of 16 saturating 96% on room air afebrile. Decreased and tentorium more on the right inferior zones Chest x-ray shows postoperative changes the right lateral chest wall with loss of right lung volume Assessment. 1. Chronic cough likely bronchitis 2. Euvolemic Hyponatremia 3. Hypertension 4. Mild hyperkalemia 5. Bipolar disorder Plan Will observe off of antibiotics. Patient already received ceftriaxone and doxycycline in the ER besides the azithromycin and moxifloxacin which he received as an outpatient. Obtain keys cultures including sputum culture. If patient persistently has symptoms will need CAT scan of the chest to assess for persistent pneumonia/ progression of lung cancer. Obtain urine osmolarity urine lytes and serum osmolality. Repeat BEP in the morning Continue with home inhalers and antitussives and home antihypertensives Lovenox for DVT prophylaxis Krzysztof Mcfarlane 09/27/17 0554: Core Measures/Misc (01/12) Sepsis (View protocol) If YES complete Sepsis Event Note If YES complete Sepsis Event Note Resident Review Statement Resident Statement: examined this patient, discussed with product managent intern, agreed with product managent intern, discussed with family, reviewed EMR data (avail), discussed with nursing , discussed with case mgmt, reviewed images, amended to note Other Findings: 51-year-old gentleman history of lung cancer status post lobectomy, former smoker quit 15 years ago, no recreational drug use, currently a auto painter helper, history of COPD, patient states history of asthma as well, but stated compliance to prescribed inhalers comes to [facility] ED after feeling poorly, persistent cough, stable respiratory status, with 2 courses of antibiotics- Zithromax for 5 days, moxifloxacin for 5 days Medrol Dosepak. Wells for PE-0. D-dimer-236. To be admitted to general medicine for for persistent cough and possible bronchitis. On an average, following an episode of acute viral or bacterial bronchitis, regional for cough symptoms can be approximately 21 days. Patient has had the symptoms for 15 days. Highly doubt if this is secondary to pneumonia, in the setting of appropriate coverage for atypicals as well as atypicals with azithromycin and moxifloxacin (granted he is asplenic at risk for encapsulated organisms). Chest x-ray unrevealing for any pneumonia. TRC nebs. Continue long-acting antimuscarinics-Spiriva. Continue Ventolin. Has seen Dr. Demarco in the past. Pulmonary consult. No need for steroids, no wheezing on exam. No need for antibiotics. If his symptoms continue to persist beyond 21 days, most likely causes would be postnasal drip (may trial with first generation antihistamine and nasal decongestant combination), asthma (unlikely given he is on appropriate bronchodilators) and acid reflux (may need omeprazole dose increased to 40 mg). For his mental health, continue Depakote, trazodone, Lexapro and olanzapine. His hyponatremia, is perhaps secondary to Lexapro and Depakote her primary polydipsia. May check a serum osmolality, urine osmolality, urine lites etc. check Legionella urinary antigen. Full code. Regular diet. Lovenox for DVT prophylaxis.
[2017-09-27 01:27] VITALS: BP 162/90
--- NOTE | 2017-09-27 05:24 | PN- Housestaff ---
Jos ROTHMAN,Esthela 09/27/17 0523: Subjective Follow-up For: Chronic bronchitis Subjective: Patient seen and examined at bedside no overnight events. Denies any cough. He feels better with the breathing treatment. Review of Systems Constitutional: Reports: no symptoms, see HPI. Objective Last 24 Hrs of Vital Signs/I&O Vital Signs Date Time Temp Pulse Resp B/P B/P Pulse O2 O2 Flow FiO2 Mean Ox Delivery Rate 09/27 0128 Room Air 09/27 0127 97.8 80 18 162/90 94 Room Air 09/27 0031 97.7 79 16 155/78 97 Room Air 09/26 2326 95 06/ 2219 72 16 133/69 96 Room Air 09/26 2218 Room Air 09/26 1858 97.7 68 18 170/69 97 Room Air 09/26 1436 97.1 80 18 125/92 97 Room Air Intake & Output 09/27 0800 09/27 0000 09/26 1600 Intake Total 1150 0 Output Total 300 Balance 850 0 Intake, IV 150 Intake, Oral 1000 0 Output, Urine 300 Patient 154 lb 170 lb Weight Weight Bed scale Measurement Method Physical Exam General Appearance: Alert, Oriented X3, Cooperative, No Acute Distress Cardiovascular: Regular Rate, Normal S1, Normal S2, No Murmurs Lungs: Normal Air Movement Abdomen: Soft, No Tenderness, No Hepatospenomegaly Neurological: Normal Speech, Strength at 5/5 X4 Ext, Normal Tone, Sensation Intact Extremities: No Edema Current Medications: Current Medications Sig/Qing Start time Last Medication Dose Route Stop Time Status Admin Acetaminophen 650 MG Q6 09/27 599 DC PO Acetaminophen 650 MG Q6 PRN 09/27 0245 AC 09/27 PO 0241 Albuterol Sulfate 2 PUF Q4-6 PRN PRN 09/26 2330 AC INH Albuterol Sulfate 3 ML ONCE ONE 09/26 2044 DC 09/26 INH 09/26 2045 231 Albuterol Sulfate 3 ML ONCE ONE 09/26 2044 DC 09/26 INH 09/26 2045 231 Aspirin 81 MG DAILY 09/27 09 AC PO Ceftriaxone Sodium 0 .STK-MED ONE 09/268 DC .ROUTE Ceftriaxone Sodium 1,000 MG ONCE ONE 09/26 2100 DC 09/26 IV 09/26 210 2300 Divalproex Sodium 250 MG BID 09/26 2320 AC PO Doxycycline Hyclate 100 MG ONCE ONE 09/26 2099 DC 09/26 Dextrose/Water 100 ML IV 09/26 2205 2333 Enoxaparin Sodium 40 MG DAILY 09/27 899 AC SC Escitalopram Oxalate 5 MG DAILY 09/27 899 AC PO Guaifenesin/Codeine 10 ML Q6P PRN 09/26 2330 AC Phosphate PO Ipratropium [place] 2.5 ML ONCE ONE 09/26 2044 DC 09/26 INH 09/26 2045 231 Lorazepam 1 MG DAILY 09/27 899 AC PO Methylprednisolone 0 .STK-MED ONE 09/27 2011 DC .ROUTE Methylprednisolone 125 MG ONCE ONE 09/26 1944 DC 09/26 IV 09/26 Olanzapine 20 MG QPM 09/27 2099 AC PO Omeprazole 40 MG DAILY 09/27 899 AC PO Propranolol HCl 60 MG DAILY 09/27 899 AC PO Sodium Chloride 1,000 ML BOLUS ONE 09/26 191 DC 09/26 IV 09/26 Tiotropium [place] 1 PUF DAILY 09/27 899 AC INH Trazodone HCl 100 MG QPM 09/27 2099 AC PO Last 24 Hrs of Lab/Dharmesh Results Last 24 Hrs of Labs/Mics: Laboratory Tests 09/26/17 2347: Lactic Acid Cancelled 09/26/17 232: Ur Random Creatinine Cancelled, Ur Random Sodium Cancelled, Ur Random Potassium Cancelled, Fraction Sodium Excret Cancelled 09/26/17 2210: Lactic Acid 0.6 L 09/26/171944: Urine Color STRAW, Urine Clarity CLEAR, Urine pH 7.0, Ur Specific [place] <= 1.005, Urine Protein NEG, Urine Ketones NEG, Urine Nitrite NEG, Urine Bilirubin NEG, Urine Urobilinogen 0.2, Ur Leukocyte Esterase NEG, Ur Microscopic EXAM NOT REQUIRED, Urine Hemoglobin NEG, Urine Glucose NEG 09/26/17 194: Ur Random Creatinine 18.2, Ur Random Sodium 15 L, Ur Random Potassium 13.3, Fraction Sodium Excret 0.4 09/26/17 1527: Anion Gap 10, Estimated GFR > 60, BUN/Creatinine Ratio 5.7 L, Glucose 117 H, Calcium 9.7, Total Bilirubin 0.5, AST 18, ALT 17 L, Alkaline Phosphatase 73, Troponin I < 0.01, Total Protein 6.9, Albumin 3.5, Globulin 3.4, Albumin/ Globulin Ratio 1.0 L, D-Dimer High Sensitivty 236, CBC w Diff NO MAN DIFF REQ, RBC 4.48 L, MCV 89.3, MCH 30.3, MCHC 34.0, RDW 13.8, MPV 7.4, Gran % 61.5, Lymphocytes % 21.9, Monocytes % 14.6 H, Eosinophils % 1.7, Basophils % 0.3, Absolute Granulocytes 9.2 H, Absolute Lymphocytes 3.3, Absolute Monocytes 2.2 H, Absolute Eosinophils 0.3, Absolute Basophils 0 Microbiology 09/27 556 LOWER RESP: Respiratory Culture - COLB 09/27 556 LOWER RESP: Gram Stain - COLB 09/26 2145 BLOOD: Blood Culture - RECD 09/26 2130 BLOOD: Blood Culture - RECD 09/26 2046 BLOOD: Blood Culture - CAN Cancelled: ERROR ORDER 09/26 194 URINE ROUT: Legionella Antigen - COMP 09/26 UNK BLOOD: Blood Culture - CAN Cancelled: ERROR ORDER Assessment/Plan Assessment: 46-year-old male with past medical history of hypertension, COPD, dyslipidemia, splenectomy and depression, LUNG CANCER STATUS post lobectomy came to [place] [facility] with complaints of cough associated with chest pain for past 2 weeks Assessment and plan Chronic bronchitis Hyponatremia Bipolar disease -Chronic cough associated with chest pain-possible bronchitis less likely pneumonia. Of note patient has COPD. We will continuel Spirva and Ventolin. We will follow him off antibiotics. -Chronic [id number]-[id number]-mg BEP, urine osmolality, fena, urine sodium, potassium and creatinine. -Continue rest of his home medication. Problem List: 1. Bronchitis Pain Ratin Pain Location: None Pain Goal: Remain pain free Pain Plan: Tylenol Tomorrow's Labs & Rationales: BEP Zoey Villa 09/27/17 1438: Attending MD Review Statement Attending Statement Attending MD Statement: examined this patient, discuss w/resident/PA/CATERPILLAR DRIVER, agreed w/resident/PA/CATERPILLAR DRIVER, reviewed EMR data (avail), discussed with nursing Attending Assessment/Plan: Pt seen and examined at bedside. feels his breathing is better. Has mild wheezing on exam. Cont on current meds and will see how he does by tomorrow and plan dc based on his resp status. Hyponatremia- pt says he has been on lexapro for a long time and his only new med is Breo. Unlikely that his hyponatremia is secondary to lexapro. Na stable and today is 130.
[2017-09-27 06:54] VITALS: BP 136/80
[2017-09-27 09:16] LABS: ABSOLUTE BASOPHIL COUNT 0 /CUMM (0.0-0.2); ABSOLUTE EOSINOPHIL COUNT 0 /CUMM (0.0-0.7); ABSOLUTE GRANULOCYTE CT 9.9 /CUMM (1.4-6.5); ABSOLUTE LYMPH COUNT 0.8 /CUMM (1.2-3.4); ABSOLUTE MONOCYTE COUNT 0.1 /CUMM (0.10-0.60); BASOPHIL % 0.2 % (0.0-2.0); EOSINOPHIL % 0 % (0-5); GRANULOCYTE % 92.1 % (42.2-75.2); HEMATOCRIT 35.5 % (42-52); MEAN CORPUSCULAR HGB 30.7 PG (27.0-31.0); MEAN CORPUSCULAR HGB CONC 34.9 G/DL (33.0-37.0); MEAN PLATELET VOLUME 7.9 FL (7.4-10.4); PLATELET COUNT 480 /CUMM (130-400); RBC DISTRIBUTION WIDTH 14.4 % (11.5-14.5); RED BLOOD CELL CT 4.03 /CUMM (4.70-6.10); WHITE BLOOD CELL COUNT 10.8 /CUMM (4.8-10.8)
[2017-09-27 15:01] VITALS: BP 144/80
[2017-09-27 22:35] VITALS: BP 137/78
[2017-09-28 03:14] VITALS: BP 136/80
[2017-09-28 06:44] VITALS: BP 122/78
[2017-09-28 07:58] VITALS: BP 130/80
--- NOTE | 2017-09-28 08:43 | PN- Housestaff ---
See Addendum Subjective Follow-up For: Chronic bronchitis Subjective: Patient reports a wet cough without sputum production. Review of Systems Constitutional: Reports: see HPI. Objective Last 24 Hrs of Vital Signs/I&O Vital Signs Date Time Temp Pulse Resp B/P B/P Pulse O2 O2 Flow FiO2 Mean Ox Delivery Rate 09/28 1030 97 Room Air / 0800 Room Air 06/ 0758 70 130/80 06/ 0644 97.9 70 16 122/78 95 Room Air 06/ 0314 98.1 80 18 136/80 96 Room Air 06/ 2235 98.0 79 19 137/78 97 Room Air 06/ 2115 95 Room Air / 1600 Room Air Room Air / 1501 97.9 77 20 144/80 97 Intake & Output 09/28 1600 09/28 0800 09/28 0000 Intake Total 500 480 Output Total 150 1300 1180 Balance -150 -800 -700 Intake, Oral 500 480 Output, Urine 150 1300 1180 Patient 150 lb Weight Weight Bed scale Measurement Method Physical Exam General Appearance: Alert, Oriented X3, Cooperative, No Acute Distress Cardiovascular: Regular Rate, Normal S1, Normal S2 Lungs: Decreased LLL breath sounds Abdomen: Normal Bowel Sounds, Soft, No Tenderness Current Medications: Current Medications Sig/Qing Start time Last Medication Dose Route Stop Time Status Admin Acetaminophen 650 MG Q6 PRN 09/27 0245 DCD 09/28 PO 0758 Albuterol Sulfate 3 ML BID 09/27 2099 DCD 09/28 INH 1033 Albuterol Sulfate 2 PUF Q4-6 PRN PRN 09/26 2330 DCD INH Aspirin 81 MG DAILY 09/27 899 DCD 09/28 PO 0757 Divalproex Sodium 250 MG BID 09/26 2320 DCD 09/28 PO 0758 Enoxaparin Sodium 40 MG DAILY 09/27 899 DCD 09/28 SC 0757 Escitalopram Oxalate 5 MG DAILY 09/27 899 DCD 09/28 PO 0757 Guaifenesin/Codeine 10 ML Q6P PRN 09/26 2330 DCD 09/28 Phosphate PO 0923 Lorazepam 1 MG DAILY 09/27 899 DCD 09/28 PO 0758 Olanzapine 20 MG QPM 09/27 2100 DCD 09/27 PO 2045 Omeprazole 40 MG DAILY 09/27 899 DCD 09/28 PO 0757 Propranolol HCl 60 MG DAILY 09/27 0900 DCD 09/28 PO 0758 Senna 187 MG AT BEDTIME 09/28 2100 CAN PO Simethicone 80 MG Q6P PRN 09/28 0930 DCD 09/28 PO 0923 Tiotropium [place] 1 PUF DAILY 09/27 0900 DCD 09/28 INH 0759 Trazodone HCl 100 MG QPM 09/27 2100 DCD 09/27 PO 2045 Last 24 Hrs of Lab/Dharmesh Results Last 24 Hrs of Labs/Mics: Laboratory Tests 09/28/17 0745: Anion Gap 10, Estimated GFR > 60, BUN/Creatinine Ratio 11.7 Assessment/Plan Assessment: 46-year-old male with past medical history of hypertension, COPD, dyslipidemia, splenectomy and depression, LUNG CANCER STATUS post lobectomy came to [place] ER with complaints of cough associated with chest pain for past 2 weeks #Chronic bronchitis #Hyponatremia - improving Plan: Watch off antibiotics TRC/nebs PRN Diet: Regular Code: Full DVT ppx: ALPS Dispo: DC home today Problem List: 1. Bronchitis Pain Ratin Pain Location: NA Pain Goal: Remain pain free Pain Plan: NA Tomorrow's Labs & Rationales: none
--- NOTE | 2017-09-28 11:17 | Patient Discharge Instructions ---
Discharge Instructions General Discharge Information You were seen/treated for: Chronic bronchitis You had these procedures: none Special Instructions: Follow up with your PCP within 1 week of discharge Diet Continue normal diet: Yes Activity Full Activity/No Limits: Yes Acute Coronary Syndrome Inclusion Criteria At DC or during hospital stay patient has or had the following: ACS DIAGNOSIS No Discharge Core Measures Meds if any: Prescribed or Continued at Discharge Meds if any: NOT Prescribed or Continued at Discharge Congestive Heart Failure Inclusion Criteria At DC or during hospital stay patient has or had the following: CHF DIAGNOSIS No Discharge Core Measures Meds if any: Prescribed or Continued at Discharge Meds if any: NOT Prescribed or Continued at Discharge Cerebrovascular accident Inclusion Criteria At DC or during hospital stay patient has or had the following: CVA/TIA Diagnosis No Discharge Core Measures Meds if any: Prescribed or Continued at Discharge Meds if any: NOT Prescribed or Continued at Discharge Venous thromboembolism Inclusion Criteria VTE Diagnosis No VTE Type NONE VTE Confirmed by (Test) NONE Discharge Core Measures - Per Current guidelines, there needs to be overlap - treatment for the first 5 days of Warfarin therapy. - If discharged on Warfarin prior to 5 days of - overlap therapy, the patient will need to be - assessed for post discharge needs including - *Post discharge parental anticoagulation - *Warfarin and/or parental anticoagulation education - *Follow up date to check INR post discharge At least 5 days overlap therapy as Inpatient No Meds if any: Prescribed or Continued at Discharge Note: Overlap Therapy is Warfarin and Anticoagulant Meds if any: NOT Prescribed or Continued at Discharge
== END 2017-09-28 13:55 | DRG 202 ==
LOC: ERH 13:43 → 2NA 21:28 → ERHI 21:28 → ENRESERV 23:44 → 2NA 09-27 00:57 → ENTRNSPT 09-28 13:52 → EDTRNSPTTYP 09-28 13:54 → EDTRNSPTSTS 09-28 13:54 → EDTRNSPT 09-28 13:54 → 2NA 09-28 13:55 → CMPTRNSPT 09-28 14:13
PROVIDERS: Internal Medicine Hematology & Oncology; Physician Assistant Medical
DX: J40 Bronchitis, not specified as acute or chronic (principal); E87.1 Hypo-osmolality and hyponatremia; I10 Essential (primary) hypertension; E78.5 Hyperlipidemia, unspecified; J44.9 Chronic obstructive pulmonary disease, unspecified; Z90.81 Acquired absence of spleen; Z85.118 Personal history of other malignant neoplasm of bronchus and lung; Z90.2 Acquired absence of lung [part of]; Z88.5 Allergy status to narcotic agent; Z88.0 Allergy status to penicillin; Z79.82 Long term (current) use of aspirin; Z79.891 Long term (current) use of opiate analgesic; Z79.51 Long term (current) use of inhaled steroids; I25.2 Old myocardial infarction; F31.9 Bipolar disorder, unspecified; E87.5 Hyperkalemia
CPT/HCPCS: 2NASP; 84133; 84300; ERO; 36415; 36592; 71046; 81003; 82436; 82570; 87040; 87070; 87071; 87449; 93005; 93010; 96374; J0696; J1650; J2930; J3490